=== PATIENT | female | born 1965 | race Caucasian/White ===

== ENCOUNTER → 2016-08-06 | Outpatient (CLI) | payer BC ==
--- NOTE | 2016-08-06 14:50 | US ---
EXAMINATION TYPE: US kidneys/renal and bladder DATE OF EXAM: 08/06/2016 10:07 AM COMPARISON: CT abdomen and pelvis January 09, 2013 CLINICAL HISTORY: US. Right flank pain, history of kidney stone EXAM MEASUREMENTS: Right Kidney: 10.9 x 5.1 x 5.0cm Left Kidney: 11.2 x 5.8 x 4.0cm ANATOMY: TECHNOLOGIST IMPRESSION: Right Kidney: no evidence of hydronephrosis or mass Left Kidney: prominent collecting system Bladder: appears wnl Bilateral Jets seen: no Exam is suboptimal secondary to patient's large body habitus. Some cortical thinning in the right kidney is felt present. No right-sided hydronephrosis is seen. Th ere is anechoic fullness centrally in left kidney mid to lower pole level believed to correspond to p arapelvic cyst on prior CT. No definitive left-sided hydronephrosis is felt present. The urinary blad heidy is anechoic. Bilateral ureteral jets are not seen. IMPRESSION: No definitive hydronephrosis is seen bilaterally on current study.
== END | disposition home or self-care (01) ==
LOC: RADUSWWP 09:16
PROVIDERS: ATTEND Family Medicine
DX: N23 Unspecified renal colic (principal); Z87.442 Personal history of urinary calculi
CPT/HCPCS: 76770

== ENCOUNTER → 2019-04-05 | Outpatient (CLI) | payer BC ==
--- NOTE | 2019-04-05 13:51 | US ---
EXAMINATION TYPE: US kidneys/renal and bladder DATE OF EXAM: 04/05/2019 COMPARISON: US 2017. CLINICAL HISTORY: R31.9 Hematuria,. Pt states gross hematuria x 1 week, has recently stopped EXAM MEASUREMENTS: Right Kidney: 12.2 x 6.1 x 5.0 cm Left Kidney: 11.6 x 5.7 x 5.0 cm Large pt body habitus, difficult to penetrate Right Kidney: Dilated renal pelvis= 1.7 cm Left Kidney: Probable parapelvic cyst per previous CT best seen in transverse image= 1.7 x 2.5 cm Bladder: wnl Bilateral Jets seen: No There is no evidence for hydronephrosis at this point in time. No nephrolithiasis is seen. No catrina s are identified. The urinary bladder is anechoic. Bilateral ureteral jets are not seen. IMPRESSION: Suboptimal study, prominent right renal pelvis with suspected some calyceal dilatation. P robable mild right-sided hydronephrosis. Consider further investigation with repeat contrast-enhanced CT study.
--- NOTE | 2019-04-06 14:36 | MM ---
Reason for exam: screening (asymptomatic). Last mammogram was performed 4 years and 7 months ago. History: Family history of breast cancer in maternal grandmother at age 70 and breast cancer in paternal aunt at age 60. Took hormonal contraceptives for 8 years. Physical Findings: A clinical breast exam by your physician is recommended on an annual basis and results should be correlated with mammographic findings. MG Screening Mammo w CAD Bilateral CC and MLO view(s) were taken. Prior study comparison: September 12, 2014, right breast MG work up mamm w CAD RT. September 05, 2014, bilateral MG screening mammo w CAD. No significant changes when compared with prior studies. ASSESSMENT: Benign, BI-RAD 2 RECOMMENDATION: Routine screening mammogram of both breasts in 1 year.
== END | disposition home or self-care (01) ==
LOC: RADUSWWP 12:05
PROVIDERS: ATTEND Family Medicine
DX: Z12.31 Encounter for screening mammogram for malignant neoplasm of breast (principal); R31.9 Hematuria, unspecified
CPT/HCPCS: 76770; 77067

== ENCOUNTER → 2019-04-30 | Outpatient (CLI) | payer BC ==
--- NOTE | 2019-05-02 08:39 | CT ---
EXAMINATION TYPE: CT abdomen wo/w con DATE OF EXAM: 04/30/2019 COMPARISON: Ultrasound 04/05/2019 HISTORY: Hydronephrosis, hematuria, Abnormal findings on diagnostic imaging, Rt kidney CT DLP: 2413.40 mGycm Automated exposure control for dose reduction was used. TECHNIQUE: Helical acquisition of images was performed from the lung bases through the top of iliac crest to include entire abdomen. CONTRAST: Performed with Oral Contrast and with IV Contrast, patient injected with 100 mL of Isovue 300. FINDINGS: LUNG BASES: There is low in attenuation correlate for hepatic steatosis. LIVER/GB: No significant abnormality is appreciated. PANCREAS: No significant abnormality is seen. SPLEEN: No significant abnormality is seen. ADRENALS: No significant abnormality is seen. KIDNEYS: There are bilateral simple appearing parapelvic renal cysts no evidence of hydronephrosis or nephrolithiasis. 5 mm low-density area within the mid posterior cortex right kidney too small to zack racterize BOWEL: No significant abnormality is seen. LYMPH NODES: No significant abnormality is seen. OSSEOUS STRUCTURES: No significant abnormality is seen. OTHER: Aorta of normal caliber. No visualized IMPRESSION: 1. Bilateral parapelvic renal cyst with no hydronephrosis or nephrolithiasis 2. Subcentimeter indeterminate right renal lesion too small to characterize likely benign. Follow-up [address] scan as clinically warranted.
== END | disposition home or self-care (01) ==
LOC: RADCTMAIN 07:41
PROVIDERS: ATTEND Family Medicine
DX: N28.1 Cyst of kidney, acquired (principal)
CPT/HCPCS: 74170; Q9967

== ENCOUNTER → 2023-08-04 | Outpatient (CLI) | payer BC ==
--- NOTE | 2023-08-04 14:39 | MM ---
Reason for Exam: Screening (asymptomatic). Last mammogram was performed 4 year(s) and 4 month(s) ago. Patient History: Menarche at age 13. First Full-Term at age 28. Patient used Hormonal Contraceptives for 8 years. Maternal grandmother had breast cancer, age 70. Paternal aunt had breast cancer, age 60. Risk Values: Mayra 5 year model risk: 1.5%. NCI Lifetime model risk: 9.7%. Prior Study Comparison: 09/05/2014 Bilateral Screening Mammogram, [facility]. 09/12/2014 Right Diagnostic Mammogram, [facility]. 04/05/2019 Bilateral Screening Mammogram, [facility]. Tissue Density: There are scattered fibroglandular densities. Findings: Analyzed By CAD. There is no suspicious group of microcalcifications or new suspicious mass. Benign-appearing calcifications left breast. Overall Assessment: Benign, BI-RAD 2 Management: Screening Mammogram of both breasts in [address] [facility] will attempt to contact patient to return for supplemental views and ultrasound if indicated. Patient should continue monthly self-breast exams. A clinical breast exam by your physician is recommended on an annual basis. This exam should not preclude additional follow-up of suspicious palpable abnormalities. Note on Mayra scores and lifetime risk: 1. A Mayra score greater than 3% is considered moderate risk. If this is the case, consider specialist referral to assess eligibility for a risk reducing agent. 2. If overall lifetime risk for the development of breast cancer is 20% or higher, the patient may qualify for future screening with alternating mammogram and breast MRI. Electronically signed and approved by: Isac Meadows DO
== END | disposition home or self-care (01) ==
LOC: RADMAMWWP 08:51
PROVIDERS: ATTEND Family Medicine
DX: Z12.31 Encounter for screening mammogram for malignant neoplasm of breast (principal); Z80.3 Family history of malignant neoplasm of breast
CPT/HCPCS: 77063; 77067